=== PATIENT | female | born 1985 | race Caucasian/White ===

== ENCOUNTER 2017-11-09 04:44 | Emergency (ER) | payer MEDICAID ==
[~2017-11-09] VITALS: Ht 167.6 cm; Wt 109.1 kg
[2017-11-09 04:51] VITALS: BP 140/98
[2017-11-09] MEDS ORDERED: DEPOP150I IM (04:55)
[2017-11-09] MEDS ORDERED: ALBU8HFA IH (04:55)
[2017-11-09] MEDS ORDERED: AMOX TR/POT CLAV 875 MG/125 MG TABLET PO ONE (05:15)
[2017-11-09] MEDS ORDERED: ACETAMINOPHEN 500 MG TABLET PO ONE (05:15)
== END 2017-11-09 05:19 | disposition home or self-care (01) ==
LOC: EMS 04:47
DX: H60.12 Cellulitis of left external ear (principal); J45.909 Unspecified asthma, uncomplicated; Z88.5 Allergy status to narcotic agent; Z91.013 Allergy to seafood
CPT/HCPCS: 99283